=== PATIENT | female | born 1970 | race Caucasian/White ===

== ENCOUNTER 2020-06-22 09:16 | Emergency (ER) | payer OTHER ==
[2020-06-22] MEDS ORDERED: Ketorolac Tromethamine 30 MG/ML VIAL ONE (09:26)
[2020-06-22] MEDS ORDERED: Morphine 2 MG/ML VIAL ONE (10:39)
[2020-06-22 10:44] LABS: Bilirubin Negative (Negative); Blood, Urine Negative (Negative); Clarity Clear (Clear); Glucose, Urine (Dipstick) Negative (Negative); Ketone, Urine Negative (Negative); Leukocyte Negative (Negative); Nitrite Negative (Negative); Protein, Urine (Dipstick) Negative (Neg-Trace); Urobilinogen 0.2 mg/dL (Less than 2); pH, Urine 8.5 (5.0-9.0)
[2020-06-22] MEDS ORDERED: methylPREDNISolone Sod Succ/PF 125 MG/2 ML VIAL ONE (11:03)
--- NOTE | 2020-06-22 19:25 | CT ---
CT OF THE RIGHT HIP: Date: 06-22-[address] of the hip was done for evaluation of pain. FINDINGS: No fracture, dislocation, or bony anomaly was seen. No bony destructive lesions were noted. The joint space appears normal and there is no substantial arthritic change of concern. The surrounding soft t issues were unremarkable. IMPRESSION: No acute bone or joint findings. POS: HOME
--- NOTE | 2020-06-22 20:28 | CT ---
CT LUMBAR SPINE: Date: 06-22-2020 CT of the lumbar spine performed for evaluation of back pain and right lower extremity pain, particul marco around the hip. FINDINGS: This patient has a transitional vertebrae at the lumbosacral junction. For the purposes of this repor t, it will be labeled transitional vertebrae. The five vertebrae above it will be labeled L1-L5. No fracture or dislocation was seen at any lumbar level. There is disc space narrowing at the transit ional vertebrae/sacral junction, which is not uncommon. Pertinent findings include what appears to be a left lateral bulge of the disc at the L4-5 level and a diffuse concentric bulge of the L5 transiti onal vertebrae disc. There is some facet over growth in the lower lumbar levels, but no true spinal s tenosis was seen at any levels. Only at the L4-5 level does the thecal sac begin to be slightly crowd ed. IMPRESSION: 1. Transitional lumbar vertebrae. 2. Diffuse concentric bulge of the L5-transitional vertebrae disc. 3. Left lateral disc bulge at L4-5. As the patient's symptoms are very right sided, this is apparentl y not symptomatic or problematic at the moment. Findings discussed with Dr. Massey at 1000 on 06-22-2020. POS: HOME
== END 2020-06-22 11:12 | disposition home or self-care (01) ==
LOC: BURERS 09:16
DX: M51.36 Other intervertebral disc degeneration, lumbar region (principal); E03.9 Hypothyroidism, unspecified; Z79.899 Other long term (current) drug therapy
CPT/HCPCS: 51701; 72131; 81003; 96374; 96375; J1885; J2270; J2930